=== PATIENT | male | born 1965 | race African-American/Black ===

== ENCOUNTER 2022-03-31 10:13 | Inpatient (IN) | payer MEDICAID ==
[~2022-03-31] VITALS: Ht 177.8 cm; Wt 144.3 kg
[~2022-03-31 10:13] MED LIST: ALLO300T2 PO; ATEN100T PO; BENA40TA91 PO; HYDR-4134 PO; HYDR12.529 PO; SIMV-46 PO; TERA10CA4 PO; plavix PO
[2022-03-31 11:12] LABS: BASOPHILS % 0.7 % (0.0-2.0); EOSINOPHILS % 7.1 % (0.0-5.0); HEMATOCRIT. 44.1 % (42.0-52.0); HEMOGLOBIN. 14.4 g/dL (14.0-18.0); MEAN CORPUSCULAR HEMOGLOBIN 25.4 pg (28.0-32.0); MEAN CORPUSCULAR VOLUME 77.8 fL (80.0-94.0); MEAN PLATELET VOLUME 9.2 fl (7.4-10.4); MONOCYTES % 7.8 % (2.0-8.0); NEUTROPHILS % 73.4 % (40.0-76.0); PLATELET 283 x1000/uL (130-400); RED BLOOD CELL COUNT 5.67 mill/uL (4.7-6.1); RED CELL DISTRIBUTION WIDTH 15.5 % (11.6-14.6)
[2022-03-31 11:26] LABS: CHLORIDE 108 mEq/L (98-107)
[2022-03-31 11:35] LABS: ETHANOL BLOOD < 10 mg/dL
[2022-03-31] MEDS ORDERED: FUROSEMIDE 40MG/4ML VIAL IV ONE (13:00)
[2022-03-31] MEDS ORDERED: ASPIRIN 81MG TABLET PO ONE (13:00)
[2022-03-31] MEDS ORDERED: MORPHINE SULFATE 2 MG/ML CPJ (NOT FOR IM USE) IV PRN (16:30)
[2022-03-31] MEDS ORDERED: MAGNESIUM/ALUMINUM HYDROXIDE/SIMETHICONE 30ML UDC PO PRN (16:30)
[2022-03-31] MEDS ORDERED: DOCUSATE SODIUM 100MG CAPSULE PO PRN (16:30)
[2022-03-31] MEDS ORDERED: HYDROCODONE/ACETAMINOPHEN 5/325MG TABLET PO PRN (16:30)
[2022-03-31] MEDS ORDERED: GUAIFENESIN 200MG/10ML SUGAR FREE UDC PO PRN (16:30)
[2022-03-31] MEDS ORDERED: DIPHENHYDRAMINE 50MG/ML VIAL IV PRN (16:30)
[2022-03-31] MEDS ORDERED: LORAZEPAM 2MG/ML CPJ IV PRN (16:30)
[2022-03-31] MEDS ORDERED: ONDANSETRON HCL 4MG/2ML INJ IV PRN (16:30)
[2022-03-31] MEDS ORDERED: IPRATROPIUM/ALBUTEROL 0.5-3(2.5)MG/3ML NEB HHN PRN (16:30)
[2022-03-31 16:54] LABS: CLARITY URINE CLEAR (CLEAR); COLOR URINE YELLOW (YELLOW); KETONES URINE NEGATIVE (NEGATIVE); LEUKOCYTE ESTERASE URINE TRACE (NEGATIVE); NITRITE URINE NEGATIVE (NEGATIVE); OCCULT BLOOD URINE NEGATIVE (NEGATIVE); PROTEIN URINE TRACE (NEGATIVE); SPECIFIC GRAVITY URINE 1.008 (1.005-1.030); UROBILINOGEN URINE 0.2 E.U./dL (0.2-1.0)
[2022-03-31 17:20] LABS: *AMPHETAMINES SCREEN URINE NEGATIVE (NEGATIVE); *BARBITURATES SCREEN URINE NEGATIVE (NEGATIVE); *BENZODIAZEPINES SCREEN URINE NEGATIVE (NEGATIVE); *COCAINE SCREEN URINE NEGATIVE (NEGATIVE); CANNABINOID URINE SCREEN NEGATIVE (NEGATIVE); METHADONE URINE SCREEN NEGATIVE (NEGATIVE); OPIATES URINE SCREEN NEGATIVE (NEGATIVE); PHENCYCLIDINE URINE SCREEN NEGATIVE (NEGATIVE)
[2022-03-31] MEDS: ENOXAPARIN 40MG/0.4ML SYR SUBCUT SCH (19:05)
[2022-03-31 20:00] VITALS: BP 164/82
[2022-03-31] MEDS: HYDRALAZINE 20MG/ML VIAL IV PRN (20:03)
[2022-03-31 20:11] VITALS: BP 164/82
[2022-03-31] MEDS: SODIUM CHLORIDE 0.9% INJ 3ML FLUSH IVF SCH (22:00)
[2022-04-01] VITALS: BP 180/79
[2022-04-01 00:16] LABS: CREATINE KINASE MB FRACTION 2.1 ng/mL (0.5-3.6)
[2022-04-01] MEDS: CLONIDINE 0.1MG TABLET PO PRN (02:23)
[2022-04-01 04:00] VITALS: BP 142/80
[2022-04-01] MEDS: SODIUM CHLORIDE 0.9% INJ 3ML FLUSH IVF SCH ×3 (06:23→22:00)
[2022-04-01] MEDS: ENOXAPARIN 40MG/0.4ML SYR SUBCUT SCH ×2 (06:23→17:35)
[2022-04-01 06:53] LABS: BASOPHILS % 0.6 % (0.0-2.0); EOSINOPHILS % 8.6 % (0.0-5.0); HEMOGLOBIN. 13.1 g/dL (14.0-18.0); LYMPHOCYTES % 15.2 % (20.0-50.0); MEAN CORPUSCULAR HEMOGLOBIN 25.7 pg (28.0-32.0); MEAN CORPUSCULAR VOLUME 78.2 fL (80.0-94.0); MEAN PLATELET VOLUME 9.3 fl (7.4-10.4); MONOCYTES % 9.3 % (2.0-8.0); NEUTROPHILS % 66.3 % (40.0-76.0); PLATELET 235 x1000/uL (130-400); RED BLOOD CELL COUNT 5.12 mill/uL (4.7-6.1); RED CELL DISTRIBUTION WIDTH 15.2 % (11.6-14.6)
[2022-04-01 07:02] LABS: CHLORIDE 107 mEq/L (98-107)
[2022-04-01 07:21] LABS: CREATINE KINASE 142 IU/L (39-308); CREATINE KINASE MB FRACTION 1.6 ng/mL (0.5-3.6)
[2022-04-01 08:00] VITALS: BP 153/83
[2022-04-01] MEDS: FUROSEMIDE 40MG/4ML VIAL IV SCH (08:28)
[2022-04-01 12:00] VITALS: BP 177/91
[2022-04-01] MEDS: HYDRALAZINE 20MG/ML VIAL IV PRN (12:04)
[2022-04-01 13:22] LABS: T4 FREE 1.21 ng/dL (0.76-1.46)
[2022-04-01 15:40] VITALS: BP 146/76
[2022-04-01] MEDS ORDERED: NALOXONE HCL 0.4MG/ML VIAL IV PRN (18:15)
[2022-04-01 20:00] VITALS: BP 150/84
[2022-04-02] VITALS: BP 148/78
[2022-04-02 04:00] VITALS: BP 152/74
[2022-04-02] MEDS: ENOXAPARIN 40MG/0.4ML SYR SUBCUT SCH ×2 (05:27→18:45)
[2022-04-02] MEDS: SODIUM CHLORIDE 0.9% INJ 3ML FLUSH IVF SCH ×3 (05:32→21:24)
[2022-04-02 08:00] VITALS: BP 161/87
[2022-04-02] MEDS: FUROSEMIDE 40MG/4ML VIAL IV SCH (08:25)
[2022-04-02 12:00] VITALS: BP 169/93
[2022-04-02] MEDS: HYDRALAZINE 20MG/ML VIAL IV PRN (14:04)
[2022-04-02 16:00] VITALS: BP 187/83
[2022-04-02] MEDS: ACETAMINOPHEN 325MG TABLET PO PRN (16:54)
[2022-04-02] MEDS: CLONIDINE 0.1MG TABLET PO PRN (16:54)
[2022-04-02 20:00] VITALS: BP 138/81
[2022-04-03] VITALS: BP 163/98
[2022-04-03] MEDS: CLONIDINE 0.1MG TABLET PO PRN ×3 (00:40→21:10)
[2022-04-03 04:00] VITALS: BP 155/92
[2022-04-03] MEDS: SODIUM CHLORIDE 0.9% INJ 3ML FLUSH IVF SCH ×2 (05:05→21:10)
[2022-04-03] MEDS: ENOXAPARIN 40MG/0.4ML SYR SUBCUT SCH ×2 (05:06→18:34)
[2022-04-03 08:00] VITALS: BP 183/97
[2022-04-03] MEDS: FUROSEMIDE 40MG/4ML VIAL IV SCH ×3 (09:00→13:06)
[2022-04-03] MEDS: HYDRALAZINE 20MG/ML VIAL IV PRN ×2 (10:02→10:15)
[2022-04-03 12:00] VITALS: BP 159/79
[2022-04-03] MEDS: ACETAMINOPHEN 325MG TABLET PO PRN (12:35)
[2022-04-03 16:00] VITALS: BP 158/95
[2022-04-03 20:00] VITALS: BP 166/83
[2022-04-04] VITALS (7 sets, daily range): BP systolic 143–183; BP diastolic 71–93
[2022-04-04] MEDS: ENOXAPARIN 40MG/0.4ML SYR SUBCUT SCH ×2 (05:37→19:24)
[2022-04-04] MEDS: SODIUM CHLORIDE 0.9% INJ 3ML FLUSH IVF SCH ×2 (05:37→21:54)
[2022-04-04] MEDS: HYDRALAZINE 20MG/ML VIAL IV PRN ×2 (05:38→21:54)
[2022-04-04] MEDS: FUROSEMIDE 40MG/4ML VIAL IV SCH (08:46)
[2022-04-04] MEDS: CLONIDINE 0.1MG TABLET PO PRN (19:22)
[2022-04-05] VITALS: BP 138/80
[2022-04-05 04:00] VITALS: BP 169/86
[2022-04-05] MEDS: ENOXAPARIN 40MG/0.4ML SYR SUBCUT SCH ×2 (06:07→18:14)
[2022-04-05] MEDS: CLONIDINE 0.1MG TABLET PO PRN ×3 (06:07→18:14)
[2022-04-05] MEDS: SODIUM CHLORIDE 0.9% INJ 3ML FLUSH IVF SCH ×3 (06:07→21:16)
[2022-04-05 08:00] VITALS: BP 156/83
[2022-04-05] MEDS: FUROSEMIDE 40MG/4ML VIAL IV SCH (09:42)
[2022-04-05 12:00] VITALS: BP 165/70
[2022-04-05 16:00] VITALS: BP 165/91
[2022-04-05 20:00] VITALS: BP 145/76
[2022-04-06] VITALS (8 sets, daily range): BP systolic 138–161; BP diastolic 73–94
[2022-04-06] MEDS: ENOXAPARIN 40MG/0.4ML SYR SUBCUT SCH ×2 (05:43→17:34)
[2022-04-06] MEDS: FUROSEMIDE 40MG/4ML VIAL IV SCH (08:10)
[2022-04-06] MEDS: ACETAMINOPHEN 325MG TABLET PO PRN (12:49)
[2022-04-06] MEDS: SODIUM CHLORIDE 0.9% INJ 3ML FLUSH IVF SCH ×2 (13:11→21:55)
[2022-04-06] MEDS: CLONIDINE 0.1MG TABLET PO PRN (17:33)
[2022-04-07] VITALS: BP 153/72
[2022-04-07 04:00] VITALS: BP 162/77
[2022-04-07] MEDS: CLONIDINE 0.1MG TABLET PO PRN ×2 (04:33→11:40)
[2022-04-07] MEDS: ENOXAPARIN 40MG/0.4ML SYR SUBCUT SCH (06:05)
[2022-04-07] MEDS: SODIUM CHLORIDE 0.9% INJ 3ML FLUSH IVF SCH (06:06)
[2022-04-07 08:00] VITALS: BP 160/110
[2022-04-07] MEDS: FUROSEMIDE 40MG/4ML VIAL IV SCH (09:36)
[2022-04-07 11:37] VITALS: BP 167/91
[2022-04-07 13:36] VITALS: BP 146/84
[2022-04-07 13:45] VITALS: BP 146/84
== END 2022-04-07 14:28 | DRG 194 ==
LOC: ER 10:13 → 6WST 14:36 → EDBEDREQ 14:58 → EDBEDREQTM 15:00 → ENRESERV 16:31
PROVIDERS: ADMIT Internal Medicine; ATTEND Internal Medicine
DX: I11.0 Hypertensive heart disease with heart failure (principal); J96.00 Acute respiratory failure, unspecified whether with hypoxia or hypercapnia; I50.33 Acute on chronic diastolic (congestive) heart failure; J44.9 Chronic obstructive pulmonary disease, unspecified; E78.00 Pure hypercholesterolemia, unspecified; E78.5 Hyperlipidemia, unspecified; I25.10 Atherosclerotic heart disease of native coronary artery without angina pectoris; Z20.822 Contact with and (suspected) exposure to COVID-19; I25.2 Old myocardial infarction; Z79.899 Other long term (current) drug therapy; Z86.73 Personal history of transient ischemic attack (TIA), and cerebral infarction without residual deficits
CPT/HCPCS: 36415; 71045; 80053; 80061; 80305; 80320; 81003; 82550; 82553; 82962; 83036; 83880; 84439; 84443; 84484; 85025; 85379; 87426; 93005; 93306; 93970; 97162; 99285; J0360; J1650; J1940; J2270; G0480